=== PATIENT | male | born 1970 | race Caucasian/White ===

== ENCOUNTER → 2024-02-22 | Outpatient (CLI) | payer SELFPAY ==
--- NOTE | 2024-02-22 07:22 | MRI_ITS ---
STUDY: MRI LEFT KNEE REASON FOR EXAM: Male, 53 years old. Trauma, internal derangement, rule out medial meniscal tear. TECHNIQUE: Standardized fat and water weighted pulse sequences were obtained in all 3 orthogonal planes. COMPARISON: None. FINDINGS: There is a horizontal tear of the posterior body of the medial meniscus (coronal PD series 5 images 15-16). Normal hyaline cartilage of the medial femorotibial compartment. Normal medial femoral condyle and tibial plateau. Normal medial collateral ligamentous complex (MCL). Normal distal semimembranosus, gracilis and semitendinosus tendons. There is a partial discoid lateral meniscus without a discrete tear. Normal hyaline cartilage of the lateral femorotibial compartment. Normal lateral femoral condyle and tibial plateau. Normal proximal tibiofibular articulation. Normal lateral collateral (fibular) ligament. Normal popliteus tendon. Normal biceps femoris tendon. Normal anterior cruciate ligament (ACL). Normal posterior cruciate ligament (PCL). There is a small linear articular cartilage fissure along the lateral patellar facet (axial T2 series 2 images 9-10). Congruent patellofemoral articulation. Normal medial and lateral patellar retinaculum. Normal quadriceps tendon. Normal patellar tendon. Normal Hoffa''s fat pad. There is a tiny joint effusion. There is a tiny popliteal cyst. The soft tissues are unremarkable. The otherwise visualized osseous structures are unremarkable. MRI/Lower Ext Joint Only (Routine) IMPRESSION: Horizontal tear of the posterior body of the medial meniscus. Partial discoid lateral meniscus. Small linear articular cartilage fissure along the lateral patellar facet. Tiny joint effusion with a tiny popliteal cyst. Electronically Signed: Nicholas Ellis MD at 9:41 EDT ,
== END | disposition home or self-care (01) ==
LOC: MRI 07:17
PROVIDERS: PCP Family Medicine; Referring Provider Orthopaedic Surgery; Visit Provider Orthopaedic Surgery
DX: M23.92 Unspecified internal derangement of left knee (principal)
CPT/HCPCS: 73721